=== PATIENT | male | born 1985 | race Caucasian/White ===

== ENCOUNTER 2018-04-13 15:20 | Outpatient (CLI) | payer OTHER ==
--- NOTE | 2018-04-13 19:01 | MRI ---
MRI RIGHT FOOT WITHOUT CONTRAST: HISTORY: Tarsal coalition. COMPARISON: None. FINDINGS: There is poor fat saturation on this examination. Ankle MRI is a better evaluation to evaluate for t arsal coalition. LIGAMENTS: The AITFL, PITFL, ATFL, and PTFL appear to be intact. TENDONS: The Achilles tendon is intact. The flexor and extensor tendons are intact. The peroneal t endons are in a normal location without subluxation or tenosynovitis. MUSCLES: The muscles of the feet have normal signal and bulk. No abnormality is appreciated at the region of interest marker. BONES: There are very small cortical cysts of the fibular tip, as well as the adjacent lateral talus . There is some mild edema within the tarsal sinus. IMPRESSION: Findings of hindfoot valgus with early lateral impingement. POS: [id number]
== END 2018-04-13 15:21 | disposition home or self-care (01) ==
LOC: TBSIIMAG 15:20
PROVIDERS: ATTEND Podiatrist
DX: G89.29 Other chronic pain (principal); Q66.89 Other specified congenital deformities of feet